=== PATIENT | female | born 1935 | race Caucasian/White ===

== ENCOUNTER → 2019-02-09 | Outpatient (CLI) | payer MEDICARE, BC ==
[2019-02-09 16:38] LABS: Anion Gap 7.3 mmol/L (4.00-12.00); Calcium 9.4 mg/dL (8.7-10.3); Carbon Dioxide 26.7 mmol/L (21.6-31.8); Potassium 4.2 mmol/L (3.5-5.5)
== END ==
LOC: LABWHC1 10:25
PROVIDERS: ATTEND Family Medicine
DX: I25.10 Atherosclerotic heart disease of native coronary artery without angina pectoris (principal); R60.9 Edema, unspecified
CPT/HCPCS: 36415; 80048; 83880

== ENCOUNTER 2020-01-12 12:10 | Observation (INO) | payer MEDICARE, BC ==
[2020-01-12] MEDS ORDERED: NITROGLYCERIN OINT 1 INCH/GM PACKET TOPICAL STA (12:27)
[2020-01-12] MEDS ORDERED: ASPIRIN 81 MG PO STA (12:27)
--- NOTE | 2020-01-12 12:29 | ED ---
General Adult HPI - General Chief complaint: Chest Pain Stated complaint: chest discomfort Time Seen by Provider: 01/12/20 12:21 Source: patient, RN notes reviewed Mode of arrival: ambulatory Limitations: no limitations - History of Present Illness Initial comments: Patient is a pleasant 84-year-old female presenting to the emergency Department with complaints of chest discomfort. Onset of symptoms was a couple of days ago. Discomfort feels like heaviness. Discomfort is mild at this time. No radiation. No associated dyspnea or diaphoresis. Patient occasionally does have associated nausea. Patient does have history of stent placement previously however symptoms were not similar to this. No leg pain. Patient does have chronic leg edema which is unchanged. - Related Data Home Medications Medication Instructions Recorded Confirmed Aspirin 325 mg PO DAILY 01/19/14 10/27/15 Atorvastatin [Lipitor] 20 mg PO HS 01/19/14 10/27/15 Amitriptyline HCl [Elavil] 100 mg PO HS 06/26/15 10/27/15 Nitroglycerin Sl Tabs [Nitrostat] 1 tab SL DAILY PRN 06/26/15 10/27/15 Vit C/E/Zn/Coppr/Lutein/Zeaxan 1 tab PO QAM 06/26/15 10/27/15 [Preservision Areds 2 Softgel] traMADol HCl [Ultram] 50 mg PO Q8H PRN 06/26/15 10/27/15 Calcium Carbonate/Vitamin D3 1 tab PO BID 10/27/15 10/27/15 [Calcium 600 + Vit D Tablet] Multivit-Min/FA/Lycopen/Lutein 1 each PO DAILY 10/27/15 10/27/15 [Centrum Silver Tablet] amLODIPine BESYLATE [Amlodipine 10 mg PO DAILY 10/27/15 10/27/15 Besylate] Allergies Allergy/AdvReac Type Severity Reaction Status Date / Time pregabalin [From Lyrica] Allergy Diarrhea Verified 01/12/20 12:19 Review of Systems ROS Statement: Those systems with pertinent positive or pertinent negative responses have been documented in the HPI. ROS Other: All systems not noted in ROS Statement are negative. Constitutional: Denies: fever Eyes: Denies: eye pain ENT: Denies: ear pain Respiratory: Denies: cough, dyspnea Cardiovascular: Reports: as per HPI, chest pain. Denies: palpitations Endocrine: Denies: fatigue Gastrointestinal: Reports: as per HPI, nausea. Denies: abdominal pain Genitourinary: Denies: dysuria Musculoskeletal: Denies: back pain Skin: Denies: rash Neurological: Denies: weakness Past Medical History Past Medical History: Coronary Artery Disease (CAD), Chest Pain / Angina, Hyperlipidemia, Hypertension Additional Past Medical History / Comment(s): Ankle and wrist fractures. SHINGLES. History of Any Multi-Drug Resistant Organisms: None Reported Past Surgical History: Heart Catheterization With Stent, Hysterectomy Additional Past Surgical History / Comment(s): Bunionectomy, ptosis, Past Anesthesia/Blood Transfusion Reactions: No Reported Reaction Date of Last Stent Placement:: 2013 Past Psychological History: No Psychological Hx Reported Smoking Status: Former smoker Past Alcohol Use History: Occasional Past Drug Use History: None Reported - Past Family History Father Family Medical History: Congestive Heart Failure (CHF) Mother Family Medical History: CVA/TIA, Diabetes Mellitus Sister(s) Family Medical History: CVA/TIA Brother(s) Family Medical History: CVA/TIA Additional Family Medical History / Comment(s): Multiple sclerosis, blindness General Exam Limitations: no limitations General appearance: alert, in no apparent distress Head exam: Present: normocephalic Eye exam: Present: normal appearance Neck exam: Present: normal inspection Respiratory exam: Present: normal lung sounds bilaterally. Absent: chest wall tenderness Cardiovascular Exam: Present: regular rate, normal rhythm, normal heart sounds Expanded Peripheral pulses: 2+: Radial (R), Radial (L), Dorsalis Pedis (R), Dorsalis Pedis (L) GI/Abdominal exam: Present: soft. Absent: tenderness Extremities exam: Present: pedal edema (+ 1 bilateral). Absent: calf tenderness Back exam: Present: normal inspection Neurological exam: Present: alert Psychiatric exam: Present: normal affect, normal mood Skin exam: Present: normal color Course Vital Signs 01/12/20 12:16 Temperature 98.2 F Pulse Rate 92 Respiratory 18 Rate Blood Pressure 161/78 O2 Sat by Pulse 97 Oximetry EKG Findings - EKG Comments: EKG Findings:: Normal sinus rhythm 82. [place] 178. QRS 68. QT 364. QTC 425. Normal axis. Normal QRS. No acute ST change. Medical Decision Making - Medical Decision Making Patient reevaluated and updated. Case discussed in detail with Dr. Liz, who will admit covering for Dr. Campo. - Lab Data Result diagrams: 01/12/20 12:30 01/12/20 12:30 Lab Results 01/12/20 01/12/20 01/12/20 Range/Units 12:30 12:30 12:30 WBC 5.8 (3.8-10.6) k/uL RBC 4.42 (3.80-5.40) m/uL Hgb 12.3 (11.4-16.0) gm/dL Hct 37.6 (34.0-46.0) % MCV 85.1 (80.0-100.0) fL MCH 27.8 (25.0-35.0) pg MCHC 32.6 (31.0-37.0) g/dL RDW 15.1 (11.5-15.5) % Plt Count 268 (150-450) k/uL Neutrophils % 60 % Lymphocytes % 28 % Monocytes % 6 % Eosinophils % 2 % Basophils % 0 % Neutrophils # 3.5 (1.3-7.7) k/uL Lymphocytes # 1.6 (1.0-4.8) k/uL Monocytes # 0.4 (0-1.0) k/uL Eosinophils # 0.1 (0-0.7) k/uL Basophils # 0.0 (0-0.2) k/uL PT 9.4 (9.0-12.0) sec INR 0.9 (<1.2) APTT 21.7 L (22.0-30.0) sec Sodium 135 L (137-145) mmol/L Potassium 4.2 (3.5-5.1) mmol/L Chloride 100 (98-107) mmol/L Carbon Dioxide 26 (22-30) mmol/L Anion Gap 9 mmol/L BUN 26 H (7-17) mg/dL Creatinine 0.99 (0.52-1.04) mg/dL Est GFR (CKD-EPI)AfAm 61 (>60 ml/min/1.73 sqM) Est GFR (CKD-EPI)NonAf 53 (>60 ml/min/1.73 sqM) Glucose 105 H (74-99) mg/dL Calcium 9.7 (8.4-10.2) mg/dL Magnesium 2.1 (1.6-2.3) mg/dL Total Bilirubin 0.2 (0.2-1.3) mg/dL AST 29 (14-36) U/L ALT 16 (4-34) U/L Alkaline Phosphatase 100 (38-126) U/L Troponin I (0.000-0.034) ng/mL Total Protein 7.3 (6.3-8.2) g/dL Albumin 4.3 (3.5-5.0) g/dL 01/12/20 Range/Units 12:30 WBC (3.8-10.6) k/uL RBC (3.80-5.40) m/uL Hgb (11.4-16.0) gm/dL Hct (34.0-46.0) % MCV (80.0-100.0) fL MCH (25.0-35.0) pg MCHC (31.0-37.0) g/dL RDW (11.5-15.5) % Plt Count (150-450) k/uL Neutrophils % % Lymphocytes % % Monocytes % % Eosinophils % % Basophils % % Neutrophils # (1.3-7.7) k/uL Lymphocytes # (1.0-4.8) k/uL Monocytes # (0-1.0) k/uL Eosinophils # (0-0.7) k/uL Basophils # (0-0.2) k/uL PT (9.0-12.0) sec INR (<1.2) APTT (22.0-30.0) sec Sodium (137-145) mmol/L Potassium (3.5-5.1) mmol/L Chloride (98-107) mmol/L Carbon Dioxide (22-30) mmol/L Anion Gap mmol/L BUN (7-17) mg/dL Creatinine (0.52-1.04) mg/dL Est GFR (CKD-EPI)AfAm (>60 ml/min/1.73 sqM) Est GFR (CKD-EPI)NonAf (>60 ml/min/1.73 sqM) Glucose (74-99) mg/dL Calcium (8.4-10.2) mg/dL Magnesium (1.6-2.3) mg/dL Total Bilirubin (0.2-1.3) mg/dL AST (14-36) U/L ALT (4-34) U/L Alkaline Phosphatase (38-126) U/L Troponin I <0.012 (0.000-0.034) ng/mL Total Protein (6.3-8.2) g/dL Albumin (3.5-5.0) g/dL - Radiology Data Radiology results: image reviewed (Chest x-ray shows chronic changes without acute abnormality.) Disposition Clinical Impression: Chest pain Disposition: ADMITTED IP TO THIS HOSP Is patient prescribed a controlled substance at d/c from ED?: No Referrals: Daniel Campo DO [Primary Care Provider] - 1-2 days Decision Time: 13:41
--- NOTE | 2020-01-12 12:45 | XR ---
EXAMINATION TYPE: XR chest 2V DATE OF EXAM: 01/12/2020 COMPARISON: Chest x-ray October 27, 2015. HISTORY: Chest pain. TECHNIQUE: Frontal and lateral views of the chest are obtained. FINDINGS: Overlying EKG leads on current study. There is chronic parenchymal change without suspicio us focal air space opacity, pleural effusion, or pneumothorax seen. The cardiac silhouette size is u pper limits of normal with atherosclerotic thoracic aorta. The osseous structures are intact. IMPRESSION: Chronic changes without acute pulmonary process.
[2020-01-12 12:51] LABS: Basophils % (A) 0 %; Eosinophils # (A) 0.1 k/uL (0-0.7); Eosinophils % (A) 2 %; HCT 37.6 % (34.0-46.0); HGB 12.3 gm/dL (11.4-16.0); Lymphocytes # (A) 1.6 k/uL (1.0-4.8); Lymphocytes % (A) 28 %; MCH 27.8 pg (25.0-35.0); MCHC 32.6 g/dL (31.0-37.0); MCV 85.1 fL (80.0-100.0); Mean Platelet Volume 6.6; Monocytes # (A) 0.4 k/uL (0-1.0); Monocytes % (A) 6 %; Neutrophils # (A) 3.5 k/uL (1.3-7.7); Neutrophils % (A) 60 %; Platelet Count 268 k/uL (150-450); RBC 4.42 m/uL (3.80-5.40); RDW 15.1 % (11.5-15.5); WBC 5.8 k/uL (3.8-10.6)
[2020-01-12 13:08] LABS: Albumin 4.3 g/dL (3.5-5.0); Calcium 9.7 mg/dL (8.4-10.2); Magnesium 2.1 mg/dL (1.6-2.3); Potassium 4.2 mmol/L (3.5-5.1); Total Bilirubin 0.2 mg/dL (0.2-1.3); Total Protein 7.3 g/dL (6.3-8.2)
[2020-01-12 13:10] LABS: INR 0.9 (<1.2); Prothrombin Time 9.4 sec (9.0-12.0)
[2020-01-12 13:13] LABS: Partial Thromboplastin Time 21.7 sec (22.0-30.0)
[2020-01-12] MEDS ORDERED: NITROGLYCERIN SL TABS 0.4 MG TAB SUBLINGUAL PRN (13:41)
[2020-01-12] MEDS: NITROGLYCERIN OINT 1 INCH/GM PACKET TOPICAL SCH ×2 (18:52→21:52)
[2020-01-13] MEDS: NITROGLYCERIN OINT 1 INCH/GM PACKET TOPICAL SCH (04:26)
[2020-01-13 05:52] LABS: Cholesterol 261 mg/dL (<200); HDL Cholesterol 37 mg/dL (40-60); LDL Cholesterol,Calculated 162 mg/dL (0-99); Triglycerides 310 mg/dL (<150)
[2020-01-13 07:52] VITALS: RESP 16
[2020-01-13] MEDS ORDERED: ASPIRIN 325 MG TAB PO SCH (09:00)
[2020-01-13] MEDS ORDERED: ATORVASTATIN 40 MG TAB PO SCH (09:00)
[2020-01-13] MEDS ORDERED: DOBUTamine DRIP for NUC MED 500 MG in DEXTROSE/WATER 1 250ML.BAG IV ONE (10:30)
--- NOTE | 2020-01-13 10:42 | P.CRDCN ---
History of Present Illness Consult date: 01/13/20 Requesting physician: Evelyne Liz Consult reason: chest pain Chief complaint: Chest pain History of present illness: This is a pleasant 84-year-old female who resides at [facility]. She has a known history of coronary artery disease with prior LAD stenting several years ago, stenting to the ramus in 2013, history of hypertension, hyperlipidemia. She presents to the hospital with symptoms of chest heaviness and pressure which she states has been going on almost a constant for the past 2 days. Patient does state however when she gets up to do something that the pain worsens and when she sits down to rest the pain subsides. On examination by Dr. Mitchell this morning patient was also noted to have chest wall tenderness. Her chest x-ray showed chronic changes no acute process. EKG showed normal sinus rhythm with inferior Q waves and mild lateral ST depression noted. White blood cell count 5.8, hemoglobin 12.3, platelet count 268. Sodium 135, potassium 4.2, BUN 26, creatinine 0.9. Troponins are negative 3. Jalloh virus not detected. Her cholesterol is 261, LDL 162, HDL 37, triglycerides 310. Blood pressure 144/60 with a heart rate in the 60s, respirations 16, 96% on room air. Patient is not currently on a statin her beta chapis at home, she does take a baby aspirin daily. We will start the patient on a statin here, order an echocardiogram with Doppler study. After Dr. Mitchell's evaluation, he is also recommended the patient undergo a dobutamine echocardiographic study today. Past Medical History Past Medical History: Coronary Artery Disease (CAD), Chest Pain / Angina, Hyperlipidemia, Hypertension Additional Past Medical History / Comment(s): Ankle and wrist fractures. SHINGLES. History of Any Multi-Drug Resistant Organisms: None Reported Past Surgical History: Heart Catheterization With Stent, Hysterectomy Additional Past Surgical History / Comment(s): Bunionectomy, ptosis, Past Anesthesia/Blood Transfusion Reactions: No Reported Reaction Date of Last Stent Placement:: 2013 Past Psychological History: No Psychological Hx Reported Smoking Status: Former smoker Past Alcohol Use History: Occasional Past Drug Use History: None Reported - Past Family History Father Family Medical History: Congestive Heart Failure (CHF) Mother Family Medical History: CVA/TIA, Diabetes Mellitus Sister(s) Family Medical History: CVA/TIA Brother(s) Family Medical History: CVA/TIA Additional Family Medical History / Comment(s): Multiple sclerosis, blindness Medications and Allergies Home Medications Medication Instructions Recorded Confirmed Type Multivit-Min/FA/Lycopen/Lutein 1 tab PO DAILY 10/27/15 01/12/20 History [Centrum Silver Tablet] Aspirin EC [Ecotrin Low Dose] 81 mg PO DAILY 01/12/20 01/12/20 History Furosemide [Lasix] 20 mg PO DAILY PRN 01/12/20 01/12/20 History Trintellix (Unknown Dose) 1 tab PO DAILY 01/12/20 01/12/20 History Allergies Allergy/AdvReac Type Severity Reaction Status Date / Time pregabalin [From Lyrica] Allergy Diarrhea Verified 01/12/20 14:39 Physical Exam Vitals: Vital Signs Temp Pulse Pulse Resp BP BP Pulse Ox 01/13/20 07:50 98.2 F 67 16 144/66 96 01/12/20 21:38 85 18 162/71 98 01/12/20 19:53 86 18 01/12/20 16:00 86 18 01/12/20 15:20 77 18 156/74 98 01/12/20 14:11 98.3 F 86 17 156/75 97 01/12/20 13:53 73 18 161/68 98 01/12/20 12:16 98.2 F 92 18 161/78 97 Intake and Output 01/12/20 01/13/20 01/13/20 22:59 06:59 14:59 Intake Total 236 Balance 236 Intake: Oral 236 Other: # Voids 1 1 Weight 51.6 kg PHYSICAL EXAMINATION: GENERAL: 84-year-old female in no acute distress at the time of my examination HEENT: Head is atraumatic, normocephalic. Pupils equal, round. Sclera anicteric. Conjunctiva are clear. Mucous membranes of the mouth are moist. Neck is supple. There is no elevated jugular venous pressure. No carotid] bruit is heard. HEART EXAMINATION: Heart S1, S2 with soft systolic murmur is heard . CHEST EXAMINATION: Lungs are clear to auscultation and precussion. Positive chest wall tenderness is noted on palpation . ABDOMEN: Soft, nontender. Bowel sounds are heard. No organomegaly noted. EXTREMITIES: 2+ peripheral pulses with no evidence of peripheral edema and no calf tenderness noted. NEUROLOGIC patient is awake, alert and oriented 3 . Results 01/12/20 12:30 01/12/20 12:30 Cardiac Enzymes 01/12/20 01/12/20 01/12/20 Range/Units 12:30 12:30 18:42 AST 29 (14-36) U/L Troponin I <0.012 <0.012 (0.000-0.034) ng/mL 01/13/20 Range/Units 00:45 AST (14-36) U/L Troponin I <0.012 (0.000-0.034) ng/mL Coagulation 01/12/20 Range/Units 12:30 PT 9.4 (9.0-12.0) sec APTT 21.7 L (22.0-30.0) sec Lipids 01/12/20 Range/Units 12:30 Triglycerides 310 H (<150) mg/dL Cholesterol 261 H (<200) mg/dL HDL Cholesterol 37 L (40-60) mg/dL CBC 01/12/20 Range/Units 12:30 WBC 5.8 (3.8-10.6) k/uL RBC 4.42 (3.80-5.40) m/uL Hgb 12.3 (11.4-16.0) gm/dL Hct 37.6 (34.0-46.0) % Plt Count 268 (150-450) k/uL Comprehensive Metabolic Panel 01/12/20 Range/Units 12:30 Sodium 135 L (137-145) mmol/L Potassium 4.2 (3.5-5.1) mmol/L Chloride 100 (98-107) mmol/L Carbon Dioxide 26 (22-30) mmol/L BUN 26 H (7-17) mg/dL Creatinine 0.99 (0.52-1.04) mg/dL Glucose 105 H (74-99) mg/dL Calcium 9.7 (8.4-10.2) mg/dL AST 29 (14-36) U/L ALT 16 (4-34) U/L Alkaline Phosphatase 100 (38-126) U/L Total Protein 7.3 (6.3-8.2) g/dL Albumin 4.3 (3.5-5.0) g/dL Current Medications Generic Name Dose Route Start Last Admin Trade Name Freq PRN Reason Stop Dose Admin Aspirin 325 mg 01/13/20 09:00 01/13/20 08:27 Aspirin PO 325 mg DAILY CARMENZA Administration Atorvastatin Calcium 40 mg 01/13/20 09:00 01/13/20 09:17 Lipitor PO 40 mg DAILY CARMENZA Administration Dobutamine HCl/Dextrose 500 mg 250 mls @ 15.48 mls/hr 01/13/20 10:30 / IV Solution IV 01/14/20 02:38 .[id number] ONE Protocol 10 MCG/KG/MIN Nitroglycerin 0.4 mg 01/12/20 13:41 Nitrostat SUBLINGUAL Q5M PRN Chest Pain Nitroglycerin 0.5 inch 01/12/20 18:00 01/13/20 04:26 Nitro-Bid Oint TOPICAL Not Given Q6HR [facility] 1928–1983 Sodium Chloride 10 ml 01/12/20 21:00 01/13/20 08:27 Saline Flush IV 10 ml BID CARMENZA Administration Intake and Output 01/12/20 01/13/20 01/13/20 22:59 06:59 14:59 Intake Total 236 Balance 236 Intake: Oral 236 Other: # Voids 1 1 Weight 51.6 kg 01/12/20 12:30 01/12/20 12:30 EKG Interpretations (text) EKG shows a normal sinus rhythm with inferior Q waves, nonspecific lateral ST-T wave changes Assessment and Plan Plan: Assessment and plan #1 Symptoms of midsternal chest pressure and heaviness, troponins negative 3. EKG shows normal sinus rhythm with inferior Q waves and mild lateral ST-T wave changes. #2 coronary artery disease history with prior stenting of the LAD and ramus #3 hypertension #4 hyperlipidemia, untreated Plan We will obtain an echocardiogram with Doppler study. Start the patient on Lipitor. Continue baby aspirin. Patient has been advised to undergo dobutamine echocardiographic study today. Further recommendations will be based on those findings and the patient's overall clinical course. DNP note has been reviewed, I agree with a documented findings and plan of care. Patient was seen and examined.
--- NOTE | 2020-01-13 11:48 | ECHOF ---
Referral Reason:Chest pain MEASUREMENTS -------- HEIGHT: 152.4 cm WEIGHT: 51.3 kg BP: 162/71 RVIDd: 3.0 cm (< 3.3) IVSd: 1.2 cm (0.6 - 1.1) LVIDd: 3.8 cm (3.9 - 5.3) LVPWd: 1.2 cm (0.6 - 1.1) IVSs: 1.6 cm LVIDs: 2.6 cm LVPWs: 1.5 cm LA Diam: 3.4 cm (2.7 - 3.8) LAESV Index (A-L): 16.00 ml/m Ao Diam: 3.5 cm (2.0 - 3.7) AV Cusp: 2.0 cm (1.5 - 2.6) MV E Alok: 0.83 m/s MV DecT: 274 ms MV A Laok: 1.24 m/s MV E/A Ratio: 0.67 AR PHT: 537 ms FINDINGS -------- Sinus rhythm. This was a technically adequate study. The left ventricular size is normal. There is borderline concentric left ventricular hypertrophy. Overall left ventricular systolic function is normal with, an EF between 55 - 60 %. The right ventricle is normal in size. Normal LA size by volume 22+/-6 ml/m2. The right atrium is normal in size. Interatrial and interventricular septum intact. There is mild aortic valve sclerosis. Trace to mild aortic regurgitation. Mild mitral annular calcification present. The tricuspid valve appears structurally normal. There is no pulmonic regurgitation present. The aortic root size is normal. Normal inferior vena cava with normal inspiratory collapse consistent with estimated right atrial pre ssure of 5 mmHg. There is no pericardial effusion. CONCLUSIONS -------- 1. Sinus rhythm. 2. This was a technically adequate study. 3. The left ventricular size is normal. 4. There is borderline concentric left ventricular hypertrophy. 5. Overall left ventricular systolic function is normal with, an EF between 55 - 60 %. 6. The right ventricle is normal in size. 7. Normal LA size by volume 22+/-6 ml/m2. 8. The right atrium is normal in size. 9. Interatrial and interventricular septum intact. 10. There is mild aortic valve sclerosis. 11. Trace to mild aortic regurgitation. 12. Mild mitral annular calcification present. 13. The tricuspid valve appears structurally normal. 14. There is no pulmonic regurgitation present. 15. The aortic root size is normal. 16. Normal inferior vena cava with normal inspiratory collapse consistent with estimated right atrial pressure of 5 mmHg. 17. There is no pericardial effusion. DRIER FEEDER: Smita Mckeon RDCS
[2020-01-13] MEDS ORDERED: METOPROLOL TARTRATE 5 MG/5 ML VIAL IVP ONE (12:10)
--- NOTE | 2020-01-13 12:35 | P.STRESS ---
- Stress Test Note Stress Test Results/Findings: Exam Performed: dobutamine stress echo Exam Date: 01/13/20 Reason for Exam: Chest Pressure Height: 5 ft Weight: 51.6 kg Protocol: Dobutamine Stage: 30 Duration of Exercise: 6:54 Resting Heart Rate: 75 Resting Blood Pressure: 143/49 Maximum Achieved Heart Rate: 122 Maximum Achieved Blood Pressure: 176/57 85% PMHR: 116 100% PMHR: 136 METS: NA Technologist Comment: Stress Test Results/Findings: This is a 84-year-old female with history of ischemic heart disease, hypercholesterolemia and family history of ischemic heart disease being evaluated for symptoms of chest pain. Stress data. Baseline EKG showed sinus rhythm with mild nonspecific ST-T changes. A standard dose of dobutamine infusion was initiated at 10 mics and was titrated to maximum of the mics reaching a maximum heart rate of 122 with a blood pressure of 176/57. Patient did not experience any chest pain. EKGs taken to the end of exercise showed mild ST-T depressions with upsloping segments in the inferolateral leads, nondiagnostic for ischemia. The Echo data: Baseline echo images show normal wall motion and thickening. Exercises images with low dose and high dose dobutamine showed augmentation wall motion and thickening in all segments. Final impression: #1. Negative dobutamine stress test #2. Negative dobutamine stress echo
[2020-01-13 12:54] VITALS: BP 163/80; PULSE 78; TEMP 98
--- NOTE | 2020-01-13 12:57 | US ---
EXAMINATION TYPE: US venous doppler duplex LE DATE OF EXAM: 01/13/2020 12:41 PM COMPARISON: NONE CLINICAL HISTORY: edema, tender. SIDE PERFORMED: Bilateral TECHNIQUE: The lower extremity deep venous system is examined utilizing real time linear array sonog shu with graded compression, doppler sonography and color-flow sonography. VESSELS IMAGED: External Iliac Vein (EIV) Common Femoral Vein Deep Femoral Vein Greater Saphenous Vein * Femoral Vein Popliteal Vein Small Saphenous Vein * Proximal Calf Veins (* superficial vessels) Right Leg: Negative for DVT Left Leg: Negative for DVT IMPRESSION: No evidence for DVT at this time.
--- NOTE | 2020-01-13 14:43 | P.HPIM ---
History of Present Illness H&P Date: 01/13/20 Chief Complaint: Chest pain HISTORY AND PHYSICAL AND DISCHARGE SUMMARY: This is an 84-year-old female patient of Dr. Campo with past medical history of coronary artery disease status post stent, hypertension, hyperlipidemia. Patient gives history of developing a heavy feeling across her chest while she was active in her house over the past 2 days. She is not sure how long it lasted. She did receive a nitro paste in the emergency center and unsure of this improved her pain. She denies having any nausea, no choking episodes. Her sister brought her in the hospital for further evaluation. Chest x-ray showed chronic changes no acute process. EKG showed normal sinus rhythm with inferior Q waves and mild lateral ST depression noted. White blood cell count 5.8, hemoglobin 12.3, platelet count 268. Sodium 135, potassium 4.2, BUN 26, creatinine 0.9. Troponins are negative 3. Coronavirus not detected. Her cholesterol is 261, LDL 162, HDL 37, triglycerides 310. Blood pressure 144/60 with a heart rate in the 60s, respirations 16, 96% on room air. Patient has been seen by cardiology underwent a dobutamine stress test which was negative for acute ischemia, echocardiogram reveals EF 55-60%, borderline concentric left ventricular hypertrophy, mild aortic regurgitation. Ultrasound of the bilateral lower extremities negative for DVT. Patient has been seen and evaluated by cardiology and cleared for discharge. Plan for follow-up with Dr. Martinez in the office in 2 weeks. Review of Systems Constitutional: Denies anorexia, Denies chills, Denies fatigue, Denies fever, Denies lethargy, Denies malaise, Denies poor appetite, Denies weakness Eyes: denies blurred vision, denies pain Ears, nose, mouth and throat: Denies dysphagia, Denies headache, Denies nasal congestion, Denies nasal discharge, Denies sore throat, Denies vertigo Cardiovascular: Reports chest pain, Denies decreased exercise tolerance, Denies dyspnea on exertion, Denies edema, Denies leg edema, Denies lightheadedness, Denies shortness of breath, Denies syncope Respiratory: Denies cough, Denies cough with sputum, Denies dyspnea, Denies excessive sputum, Denies hemoptysis, Denies home oxygen, Denies respiratory infections, Denies wheezing Gastrointestinal: Denies abdominal pain, Denies diarrhea, Denies loss of appetite, Denies nausea, Denies vomiting Genitourinary: Denies dysuria, Denies hematuria, Denies urgency, Denies urinary frequency Menstruation: Reports postmenopausal Musculoskeletal: Denies frequent falls, Denies gait dysfunction, Denies muscle weakness, Denies myalgias Integumentary: Denies pruritus, Denies rash, Denies wounds Neurological: Denies change in mentation, Denies change in speech, Denies numbness, Denies seizures, Denies weakness Psychiatric: Denies anxiety, Denies depression Endocrine: Denies fatigue, Denies weight change Past Medical History Past Medical History: Coronary Artery Disease (CAD), Chest Pain / Angina, Hyperlipidemia, Hypertension Additional Past Medical History / Comment(s): Ankle and wrist fractures. SHINGLES. History of Any Multi-Drug Resistant Organisms: None Reported Past Surgical History: Heart Catheterization With Stent, Hysterectomy Additional Past Surgical History / Comment(s): Bunionectomy, ptosis, Past Anesthesia/Blood Transfusion Reactions: No Reported Reaction Date of Last Stent Placement:: 2013 Past Psychological History: No Psychological Hx Reported Smoking Status: Former smoker Past Alcohol Use History: Occasional Past Drug Use History: None Reported - Past Family History Father Family Medical History: Congestive Heart Failure (CHF) Mother Family Medical History: CVA/TIA, Diabetes Mellitus Sister(s) Family Medical History: CVA/TIA Brother(s) Family Medical History: CVA/TIA Additional Family Medical History / Comment(s): Multiple sclerosis, blindness Medications and Allergies Home Medications Medication Instructions Recorded Confirmed Type Multivit-Min/FA/Lycopen/Lutein 1 tab PO DAILY 10/27/15 01/12/20 History [Centrum Silver Tablet] Aspirin EC [Ecotrin Low Dose] 81 mg PO DAILY 01/12/20 01/12/20 History Furosemide [Lasix] 20 mg PO DAILY PRN 01/12/20 01/12/20 History Atorvastatin [Lipitor] 40 mg PO DAILY #30 tab 01/13/20 Rx Vortioxetine Hydrobromide 10 mg PO DAILY 01/13/20 01/13/20 History [Trintellix] Allergies Allergy/AdvReac Type Severity Reaction Status Date / Time pregabalin [From Lyrica] Allergy Diarrhea Verified 01/13/20 11:35 Physical Exam Vitals: Vital Signs Temp Pulse Pulse Resp BP BP Pulse Ox 01/13/20 07:50 98.2 F 67 16 144/66 96 01/12/20 21:38 85 18 162/71 98 01/12/20 19:53 86 18 01/12/20 16:00 86 18 01/12/20 15:20 77 18 156/74 98 01/12/20 14:11 98.3 F 86 17 156/75 97 01/12/20 13:53 73 18 161/68 98 01/12/20 12:16 98.2 F 92 18 161/78 97 Intake and Output 01/12/20 01/13/20 01/13/20 22:59 06:59 14:59 Intake Total 236 Balance 236 Intake: Oral 236 Other: # Voids 1 1 Weight 51.6 kg Gen: This is an 84-year-old female. Patient is sitting up on the edge of the bed and appears to be comfortable and in no acute distress. HEENT: Head is atraumatic, normocephalic. Pupils equal, round. Sclerae is anicteric. NECK: Supple. No JVD. No lymphadenopathy. No thyromegaly. LUNGS: Clear to auscultation. No wheezes or rhonchi. No intercostal retractions. HEART: Regular rate and rhythm. No murmur. Chest wall tenderness. ABDOMEN: Soft. Bowel sounds are present. No masses. No tenderness. EXTREMITIES: No pedal edema. Left calf tenderness. NEUROLOGICAL: Patient is awake, alert and oriented x3. Cranial nerves 2 through 12 are grossly intact. Results CBC & Chem 7: 01/12/20 12:30 01/12/20 12:30 Labs: Abnormal Lab Results - Last 24 Hours (Table) 01/12/20 01/12/20 01/12/20 Range/Units 12:30 12:30 12:30 APTT 21.7 L (22.0-30.0) sec Sodium 135 L (137-145) mmol/L BUN 26 H (7-17) mg/dL Glucose 105 H (74-99) mg/dL Triglycerides 310 H (<150) mg/dL Cholesterol 261 H (<200) mg/dL LDL Cholesterol, Calc 162 H (0-99) mg/dL HDL Cholesterol 37 L (40-60) mg/dL Thrombosis Risk Factor Assmnt - Choose All That Apply Each Risk Factor Represents 3 Points: Age 75 years or older Thrombosis Risk Factor Assessment Total Risk Factor Score: 3 Thrombosis Risk Factor Assessment Level: Moderate Risk Assessment and Plan Plan: 1. Midsternal chest pain, negative troponins. Cardiology consult appreciated. Patient underwent echocardiogram, stress test and cleared for discharge by cardiology with plan to follow-up in the office in 2 weeks. 2. History of coronary artery disease with prior stenting of the LAD and ramus. 3. Hypertension. 4. Hyperlipidemia. 5. COVID-19 infection not present. Patient placed as an observation status. Discharge plan: Home Discharge Medication List Multivit-Min/FA/Lycopen/Lutein [Centrum Silver Tablet] 1 tab PO DAILY 10/27/15 [History] Aspirin EC [Ecotrin Low Dose] 81 mg PO DAILY 01/12/20 [History] Furosemide [Lasix] 20 mg PO DAILY PRN 01/12/20 [History] Atorvastatin [Lipitor] 40 mg PO DAILY #30 tab 01/13/20 [Rx] Vortioxetine Hydrobromide [Trintellix] 10 mg PO DAILY 01/13/20 [History] Impression and plan of care have been directed as dictated by the signing physician. Kim Michaud nurse practitioner acting as scribe for signing physician.
== END 2020-01-13 15:35 | disposition home or self-care (01) ==
LOC: EC 12:10 → 3SCARD 13:41
PROVIDERS: ADMIT Family Medicine; ATTEND Family Medicine
DX: R07.89 Other chest pain (principal); R11.0 Nausea; R60.0 Localized edema; I25.10 Atherosclerotic heart disease of native coronary artery without angina pectoris; I10 Essential (primary) hypertension; E78.5 Hyperlipidemia, unspecified; Z95.5 Presence of coronary angioplasty implant and graft; Z90.710 Acquired absence of both cervix and uterus; Z98.890 Other specified postprocedural states; Z11.59 Encounter for screening for other viral diseases; Z86.19 Personal history of other infectious and parasitic diseases; Z87.891 Personal history of nicotine dependence; Z83.3 Family history of diabetes mellitus; Z82.49 Family history of ischemic heart disease and other diseases of the circulatory system; Z82.3 Family history of stroke; Z82.69 Family history of other diseases of the musculoskeletal system and connective tissue; Z79.82 Long term (current) use of aspirin; Z79.899 Other long term (current) drug therapy
CPT/HCPCS: 93005 ×2; 99285; 36415; 93306; 93351; 85379; 80061; 80053; 83735; 84484 ×2; 85025; 85610; 85730; 87635; 71046; 93970; G0378 ×2; J1250